=== PATIENT | female | born 1985 | race Hispanic/Latino ===

== ENCOUNTER 2017-12-27 20:48 | Observation (INO) | payer BC ==
[~2017-12-27] VITALS: Ht 157.5 cm; Wt 83.5 kg
[2017-12-27 00:35] VITALS: BP 100/59
--- OUTSIDE RECORDS SUMMARY | 2017-12-27 20:51 | XMS REPORT | Summary of Care ---
Author Author SAM GRIFFIN N.P. Unknown Address Unknown Phone Unavailable Care Team Providers Care Egyptologist Name Role Phone MAINE LEE N.P. Unavailable Unavailable Unavailable Unavailable Functional Status Name Dates Details Functional status health issues are not documented Status: Name Dates Details Cognitive status health issues are not documented Status: Problems Name Dates Details Fatigue, unspecified type (780.79, R53.83) Status: Active Pelvic pain in female (625.9, R10.2) Status: Active Gastric pain (536.8, R10.9) Status: Active Cervical cancer (180.9, C53.9) Status: Active Elevated LFTs (790.6, R94.5) Status: Active Vaginal itching (698.1, N89.8) Status: Active Vulvovaginal candidiasis (112.1, B37.3) Status: Active Breast pain in female (611.71, N64.4) Status: Active Galactorrhea in female (611.6, N64.3) Status: Active Swollen breast (611.72, N63.0) Status: Active Bacterial vaginosis (616.10, N76.0) Status: Active Abdominal pain (789.00, R10.9) Status: Active Breast cancer screening (V76.10, Z12.31) Status: Active Medications Name Dates Details MetroNIDAZOLE 500 MG Oral Tablet TAKE TABLET TWICE DAILY Quantity: 14 ROSA N.P., MAINE * Start : 19-Jun-2017 Active Allergies and Adverse Reactions Name Dates Details No Known Drug Allergies (Allergy) Status: Active Procedures Procedure Dates Details History of Section Completed History of Cholecystectomy Completed History of Dilation And Curettage Completed Immunization Name Dates Details Immunizations not documented Family History Name Dates Details Family history of myocardial infarction (V17.3, Z82.49) Status: Active Name Dates Details Family history of diabetes mellitus (V18.0, Z83.3) Status: Active Family history of essential hypertension (V17.49, Z82.49) Status: Active Name Dates Details Family history of arthritis (V17.7, Z82.61) Status: Active Name Dates Details Family history of myocardial infarction (V17.3, Z82.49) Status: Active Social History Name Dates Details - Status: Name Dates Details Never smoker Vital Signs Date Test Result Details No Known Vitals to report Results Date Description Value Details Results not documented Plan of Care Name Dates Details Planned Observations Planned Goals not documented Planned Encounters Appointment; ZACHARY VILLARREAL M.D. On: 07-Jan-2018 10:20 Instructions Name Dates Details Instructions not documented Encounters Appointment; ZACHARY VILLARREAL M.D. Encounter Diagnosis: Problem not documented On: 06-Dec-2015 8:15 Appointment; ZACHARY VILLARREAL M.D. Encounter Diagnosis: Problem not documented On: 06-Mar-2016 9:15 Appointment; ZACHARY VILLARREAL M.D. Encounter Diagnosis: Problem not documented On: 05-Jun-2016 8:15 Appointment; ZACHARY VILLARREAL M.D. Encounter Diagnosis: Problem not documented On: 12-Jun-2016 14:15 Appointment; ZACHARY VILLARREAL M.D. Encounter Diagnosis: Problem not documented On: 11-Sep-2016 9:40 Appointment; ZACHARY VILLARREAL M.D. Encounter Diagnosis: Problem not documented On: 11-Dec-2016 10:20 Appointment; ZACHARY VILLARREAL M.D. Encounter Diagnosis: Problem not documented On: 11-Jun-2017 10:20 Appointment; TAB MCLAUGHLIN M.D. Encounter Diagnosis: Problem not documented On: 02-Jul-2017 14:30
[2017-12-27] MEDS ORDERED: ALBUTEROL SULF 0.083% NEB SOLN 3 ML NEB NEB STA (20:52)
[2017-12-27] MEDS ORDERED: ACETAMINOPHEN 325 MG TAB PO ONE (21:00)
[2017-12-27] MEDS ORDERED: IPRATROPIUM BROMIDE 0.02% 2.5 ML NEB NEB ONE (21:00)
[2017-12-27] MEDS ORDERED: SODIUM CHLORIDE 0.9% 1000ML 1,000 ML IV SCH (21:00)
[2017-12-27 21:13] LABS: BASOPHILS # (AUTO) 0.1 (0.0-0.1); BASOPHILS % 0.5 % (0.0-1.0); EOSINOPHILS # (AUTO) 2.5 (0.0-0.4); HEMATOCRIT 41.4 % (34.2-44.1); HEMOGLOBIN 13.7 g/dL (12.0-16.0); LYMPHOCYTES # (AUTO) 2.9 (1.0-3.2); LYMPHOCYTES % 19.5 % (18.0-39.1); MEAN CORPUSCULAR HEMOGLOBIN 29.1 pg (28-32); MEAN CORPUSCULAR HGB CONC 33.1 g/dL (31-35); MEAN CORPUSCULAR VOLUME 87.9 fL (81-99); MONOCYTES # (AUTO) 0.8 (0.2-0.8); MONOCYTES % 5.5 % (4.4-11.3); NEUTROPHILS # (AUTO) 8.5 (2.1-6.9); NEUTROPHILS % 57.2 % (38.7-80.0); PLATELET COUNT 312 x10e3/uL (140-360); RED BLOOD COUNT 4.71 x10e6/uL (3.6-5.1); RED CELL DISTRIBUTION WIDTH 13.4 % (11.7-14.4)
[2017-12-27 21:21] LABS: CLARITY,URINE CLEAR (CLEAR); COLOR,URINE YELLOW (YELLOW)
[2017-12-27 21:22] LABS: BILIRUBIN,URINE NEGATIVE (NEGATIVE); KETONES,URINE NEGATIVE (NEGATIVE); LEUKOCYTE ESTERASE ,URINE NEGATIVE (NEGATIVE); NITRITE,URINE NEGATIVE (NEGATIVE); PROTEIN,URINE DIPSTICK NEGATIVE (NEGATIVE); URINE UROBILINOGEN 0.2 mg/dL (0.2 - 1)
[2017-12-27 21:23] LABS: PREGNANCY TEST, URINE NEGATIVE (NEGATIVE)
[2017-12-27 21:30] LABS: ALANINE AMINOTRANSFERASE 39 IU/L (0-55); ALBUMIN 3.9 g/dL (3.5-5.0); ALBUMIN/GLOBULIN RATIO 1.3 (0.8-2.0); ALKALINE PHOSPHATASE 68 IU/L (40-150); ANION GAP 14.7 mmol/L (8-16); BLOOD UREA NITROGEN 10 mg/dL (7-26); BUN/CREATININE RATIO 18 (6-25); CALCIUM 8.2 mg/dL (8.4-10.2); CARBON DIOXIDE 23 mmol/L (22-29); CHLORIDE 104 mmol/L (98-107); CREATININE, SERUM 0.56 mg/dL (0.57-1.11); EST GLOMERULAR FILTRATION RATE > 60 ML/MIN (60-); GLUCOSE 92 mg/dL (74-118); POTASSIUM 3.7 mmol/L (3.5-5.1); SODIUM 138 mmol/L (136-145)
[2017-12-27 21:37] LABS: BACTERIA,URINE MODERATE /HPF; EPITHELIAL CELLS,URINE MANY /LPF; RBC,URINE 0-5 /HPF (0-5); WBC,URINE (MAN) 0-5 /HPF (0-5)
[2017-12-27 21:39] LABS: INFLUENZAE A&B ANTIGEN (RAPID) NEGATIVE (NEGATIVE); STREPTOCOCCUS GRP A ANTIGEN POSITIVE (NEGATIVE)
--- NOTE | 2017-12-27 21:40 | Diagnostic Imaging Report ---
EXAM: CHEST SINGLE (PORTABLE), AP 1 view INDICATION: Shortness of breath COMPARISON: None FINDINGS: LINES/TUBES: None LUNGS: No consolidations or edema. PLEURA: No effusions or pneumothorax. HEART AND MEDIASTINUM: Normal size and contour. BONES AND SOFT TISSUES: No acute findings. IMPRESSION: No acute thoracic abnormality. Signed by: Dr. Ann-Marie Cassidy M.D. on 12/27/2017 9:37 PM
[2017-12-27] MEDS ORDERED: PENICILLIN G BENZATHINE LA 1.2 MU TBX IM STA (21:41)
[2017-12-27] MEDS ORDERED: METHYLPREDNISOLONE SOD SUCC 125 MG/2ML VIAL IV ONE (22:00)
[2017-12-27] MEDS ORDERED: SODIUM CHLORIDE 0.9% 1000ML 1,000 ML IV ONE (22:00)
[2017-12-27 22:19] LABS: EOSINOPHILS % (MANUAL) 18 % (0-7); LYMPHOCYTES % (MANUAL) 21 % (19-48); MONOCYTES % (MANUAL) 2 % (3.4-9.0); NEUTROPHILS % (MANUAL) 59 % (40-74)
[2017-12-27 22:21] LABS: PLATELET ESTIMATE ADEQUATE; PLATELET MORPHOLOGY COMMENT NORMAL; RBC MORPHOLOGY COMMENT NORMAL
--- OUTSIDE RECORDS SUMMARY | 2017-12-27 22:43 | XMS REPORT ---
Author Author [facility] Address Unknown Phone Unavailable Care Team Providers Care Press Box Custodian Name Role Phone Sylvia BARAJAS Unavailable Unavailable Problems This patient has no known problems. Allergies, Adverse Reactions, Alerts This patient has no known allergies or adverse reactions. Medications This patient has no known medications. Results Test Description Test Time Test Comments Text Results Atomic Results Result Comments CHEST SINGLE (PORTABLE) 2017-12-27 21:37:00 [facility] [address] [place] [address] Patient Name: LEXIE MORELAND MR #: [id number] : 1985 Age/Sex: 32/F Req #: [id number] Adm Physician: Ordered by: JAIME BARAJAS MD Report #: [id number] Location: ER Room/Bed: Procedure: [id number] DX/CHEST SINGLE (PORTABLE) Exam Date: 12/27/17 Exam Time: 2124 REPORT STATUS: Signed EXAM: CHEST SINGLE (PORTABLE), AP 1 view INDICATION: Shortness of breath COMPARISON: None FINDINGS: LINES/TUBES: None LUNGS: No consolidations or edema. PLEURA: No effusions or pneumothorax. HEART AND MEDIASTINUM: Normal size and contour. BONES AND SOFT TISSUES: No acute findings. IMPRESSION: No acute thoracic abnormality. Signed by: Dr. David Roberson M.D. on 12/27/2017 9:37 PM Dictated By: DAVID ROBERSON MD 36 Transcribed By: BEENA on 12/27/172136 COPY TO: JAIME BARAJAS MD
[2017-12-27] MEDS ORDERED: ONDANSETRON HCL INJ 2 MG/ML VIAL IV PRN (22:45)
[2017-12-27] MEDS: AZITHROMYCIN 500MG/NS 250 ML 250 ML IV SCH (23:00)
[2017-12-27] MEDS: SODIUM CHLORIDE 0.9% 1000ML 1,000 ML IV SCH (23:00)
[2017-12-27] MEDS: METHYLPREDNISOLONE SOD SUCC 40 MG/ML VIAL IV SCH (23:25)
[2017-12-28] MEDS: ACETAMINOPHEN 325 MG TAB PO PRN ×3 (00:22→19:35)
[2017-12-28] MEDS: ALBUTEROL/IPRATROPIUM 3 ML NEB NEB SCH ×6 (02:40→23:15)
[2017-12-28 05:40] LABS: BASOPHILS % 0.1 % (0.0-1.0); EOSINOPHILS % 0.1 % (0.0-6.0); HEMATOCRIT 36.9 % (34.2-44.1); HEMOGLOBIN 12.2 g/dL (12.0-16.0); LYMPHOCYTES % 7.4 % (18.0-39.1); MEAN CORPUSCULAR HEMOGLOBIN 28.8 pg (28-32); MEAN CORPUSCULAR HGB CONC 33.1 g/dL (31-35); MEAN CORPUSCULAR VOLUME 87.2 fL (81-99); MONOCYTES # (AUTO) 0.1 (0.2-0.8); MONOCYTES % 0.7 % (4.4-11.3); NEUTROPHILS # (AUTO) 12.2 (2.1-6.9); NEUTROPHILS % 91.2 % (38.7-80.0); PLATELET COUNT 281 x10e3/uL (140-360); RED BLOOD COUNT 4.23 x10e6/uL (3.6-5.1); RED CELL DISTRIBUTION WIDTH 13.5 % (11.7-14.4)
[2017-12-28 06:02] LABS: ALANINE AMINOTRANSFERASE 41 IU/L (0-55); ALBUMIN 3.2 g/dL (3.5-5.0); ALBUMIN/GLOBULIN RATIO 0.9 (0.8-2.0); ALKALINE PHOSPHATASE 54 IU/L (40-150); ANION GAP 12.8 mmol/L (8-16); BLOOD UREA NITROGEN 6 mg/dL (7-26); BUN/CREATININE RATIO 11 (6-25); CALCIUM 7.6 mg/dL (8.4-10.2); CARBON DIOXIDE 20 mmol/L (22-29); CHLORIDE 110 mmol/L (98-107); CREATININE, SERUM 0.53 mg/dL (0.57-1.11); EST GLOMERULAR FILTRATION RATE > 60 ML/MIN (60-); GLUCOSE 142 mg/dL (74-118); POTASSIUM 3.8 mmol/L (3.5-5.1); SODIUM 139 mmol/L (136-145)
[2017-12-28] MEDS: METHYLPREDNISOLONE SOD SUCC 40 MG/ML VIAL IV SCH ×3 (06:29→21:00)
[2017-12-28] MEDS: SODIUM CHLORIDE 0.9% 1000ML 1,000 ML IV SCH ×3 (06:31→22:31)
[2017-12-28 08:00] VITALS: BP 102/56
--- NOTE | 2017-12-28 10:26 | History and Physical ---
REFERRING PHYSICIAN: Dr. Woo Seay. HISTORY OF PRESENT ILLNESS: The patient is a 32-year-old woman. She had a history of early cervical cancer that required hysterectomy 3 years ago. She received no chemotherapy or radiation. She also reports a history of acid reflux and heartburn. She occasionally takes omeprazole. The patient now complains of increased fatigue and shortness of breath with exertion. She notes some pain in the lower sternal area and epigastric area that is worse with palpation. She also notes coughing. She denies any wheezing. She does have small amounts of yellow phlegm production. PAST SURGICAL HISTORY 1. Status post hysterectomy. 2. Status post cholecystectomy. SOCIAL HISTORY: The patient has never been a smoker. She is not a drinker. She works at [employer], a local grocery store. She is originally from [facility], but has lived here for 14 years. She has no recent travel. FAMILY HISTORY: Noncontributory. REVIEW OF SYSTEMS: The patient does not report any fever. There is no headache. She has some sore throat. She denies any neck pain. She notes some anterior chest pain that is worse with palpitation. She reports some coughing and dyspnea. She does not have any nausea or vomiting. She has no leg edema. She has no skin rashes. PHYSICAL EXAMINATION VITAL SIGNS: The patient is afebrile, although her temperature was 100 last night. Her heart rate is 104. Her blood pressure is 114/60 and saturation is 98% on 2 liters. HEENT: Shows no facial swelling or erythema. Nasal mucosa is normal. The oropharynx is normal. LYMPHATIC: Shows no submandibular, cervical, or supraclavicular adenopathy. CARDIOVASCULAR: Reveals a regular rate and rhythm with normal S1 and S2. RESPIRATORY: Auscultation of the lungs reveal clear breath sounds bilaterally. There is no wheezing. ABDOMEN: Soft. There is some rebound in the epigastric area. EXTREMITIES: There is no leg swelling. NEUROLOGIC: Exam shows no focal abnormalities. MICROBIOLOGICAL DATA: A rapid strep screen is positive. Influenza is negative. LABORATORY DATA: The carbon dioxide is 20 and the other electrolytes are within normal limits. The BUN and creatinine ratio is normal. The liver tests are normal. The white blood cell count is 13.4 and the platelet count is 281. IMPRESSION 1. Chest pain and dyspnea. 2. Strep pharyngitis. 3. Gastroesophageal reflux. 4. Asthma with acute exacerbation. PLAN Patient will receive Solu-Medrol at 30 mg IV q.[address] scan of the chest to rule out pulmonary embolism and pneumonia. Echocardiogram to rule out pericarditis. Proton pump inhibitors. Job#: [id number] NAN
[2017-12-28 11:19] VITALS: BP 112/61
[2017-12-28] MEDS: PANTOPRAZOLE 40 MG 10ML VIAL IV SCH (11:49)
--- NOTE | 2017-12-28 11:54 | Diagnostic Imaging Report ---
CT chest pulmonary embolism protocol CPT code: 61346 INDICATION: Chest pain and shortness of breath for 2 days TECHNIQUE: Thin collimation axial images obtained through the level of the pulmonary arteries with additional imaging through the chest following the uneventful administration of 100 cc of low osmolar, nonionic intravenous contrast. Images reconstructed into coronal and sagittal MIPs for complete evaluation of the tortuous and overlapping pulmonary vascular structures and to reduce patient radiation dose. Dose reduction techniques used: Automated exposure control, adjustment of the mAs and/or kVp according to patient size, standardized low-dose protocol, and/or iterative reconstruction technique. RADIATION DOSE: Total DLP: 520.6 mGy*cm Estimated effective dose: (DLP x 0.015 x size factor) mSv CTDIvol has been reviewed. It is below the limits set by the Radiation Protocol Committee (RPC). COMPARISON: Chest x-ray 12/27/2017. FINDINGS: Pulmonary artery: No filling defects are appreciated within the main, left, right, lobar or visualized segmental pulmonary arteries to suggest embolism. Aorta: The thoracic aorta is not aneurysmal. No evidence for dissection. Lymph nodes: No enlarged axillary or supraclavicular lymph nodes. Prominent right inferior hilar lymph node measures 10 mm and is nonspecific. No enlarged subcarinal lymph nodes Thyroid: Normal in size without mass in the visualized parenchyma. Mediastinum: No mediastinal fluid or air. Lungs: Right Lung: No soft tissue mass. Calcified granuloma in the right middle lobe measures 5 mm. Small foci of subsegmental atelectasis or infiltrate in the posterior costophrenic angle Left Lung: No soft tissue mass. Small foci of subsegmental atelectasis in the posterior costophrenic angle. Airways: Mild bronchial wall thickening without bronchiectasis. No filling defects. Pleura: Trace right pleural effusion in the posterior costophrenic angle. No left pleural effusion. No pleural based mass. Abdomen: The gallbladder is absent. No soft tissue mass or lymphadenopathy in the visualized portion of the upper abdomen. Bones: Unremarkable for age. IMPRESSION: 1. No evidence of pulmonary embolus or aortic dissection. 2. Diffuse bronchial wall thickening is suggestive of bronchitis. Small foci of subsegmental atelectasis in the posterior costophrenic angles. Please correlate for signs/symptoms of infection. 3. Trace right pleural effusion. Signed by: Dr. Alfonso Frost MD on 12/28/2017 11:50 AM
[2017-12-28] MEDS ORDERED: SODIUM CHLORIDE 0.9% 50ML 50 ML ONE (12:01)
[2017-12-28] MEDS ORDERED: IOPAMIDOL 370 MG/ML 200 ML INFUS..BTL INJ ONE (12:01)
[2017-12-28 15:34] VITALS: BP 109/61
[2017-12-28] MEDS: FLUTICASONE PROPIONATE 220MCG INH INH SCH (19:30)
[2017-12-28 20:00] VITALS: BP 115/72
[2017-12-28 21:00] VITALS: BP 115/72
[2017-12-28] MEDS: MONTELUKAST SODIUM 10 MG TAB PO SCH (21:00)
[2017-12-28] MEDS: AZITHROMYCIN 500MG/NS 250 ML 250 ML IV SCH (22:07)
[2017-12-29] VITALS (7 sets, daily range): BP systolic 108–119; BP diastolic 57–72
[2017-12-29] MEDS: ALBUTEROL/IPRATROPIUM 3 ML NEB NEB SCH ×6 (03:45→23:10)
[2017-12-29] MEDS: ACETAMINOPHEN 325 MG TAB PO PRN ×2 (04:11→08:40)
[2017-12-29] MEDS: FLUTICASONE PROPIONATE 220MCG INH INH SCH ×2 (06:41→19:25)
[2017-12-29] MEDS ORDERED: GUAIFENESIN/CODEINE 10 ML CUP PO PRN (08:15)
[2017-12-29] MEDS ORDERED: FUROSEMIDE 20 MG TAB PO ONE (08:15)
[2017-12-29] MEDS ORDERED: CEFTRIAXONE SOD 1 GM VIAL IV SCH (08:15)
[2017-12-29] MEDS: METHYLPREDNISOLONE SOD SUCC 40 MG/ML VIAL IV SCH ×2 (08:49→20:30)
[2017-12-29] MEDS: PANTOPRAZOLE 40 MG 10ML VIAL IV SCH (08:49)
--- NOTE | 2017-12-29 09:01 | Progress Note ---
DATE: December 29, 2017 PULMONARY PROGRESS NOTE SUBJECTIVE: The patient still has some cough and congestion. She reports anterior sternal pain with coughing. She has some wheezing and dyspnea. PHYSICAL EXAMINATION VITAL SIGNS: The patient is afebrile. The blood pressure is 110/57. The pulse is 93. Saturation is 96%. HEENT: Shows no facial swelling or erythema. The nasal mucosa is normal. The oropharynx is normal. LYMPHATIC: Shows no submandibular, cervical or supraclavicular adenopathy. NECK: Shows no JVD or thyromegaly. CARDIAC: Reveals a regular rate and rhythm with a normal S1 and S2. There are no murmurs or rubs. LUNGS: Auscultation of the lungs reveals rhonchus sounds bilaterally. There is wheezing. ABDOMEN: Soft and nontender. There is no rebound or guarding. EXTREMITIES: Shows no leg edema or calf tenderness. RADIOGRAPHIC DATA: CT scan of the chest shows no evidence of pulmonary emboli. There is some diffuse bronchial inflammation suggestive of bronchitis or asthma. There is no pneumothorax. There are no infiltrates. Echocardiogram shows no evidence of pericarditis. The ejection fraction is normal. There is no valvular abnormalities. IMPRESSION 1. Asthma with acute exacerbation. 2. Streptococcus pharyngitis. 3. Gastroesophageal reflux. 4. Chest pain secondary to asthma. PLAN 1. Continue Solu-Medrol twice daily along with bronchodilators. 2. Begin Flovent twice a day along with Singulair once daily. 3. Continue proton pump inhibitors and H2 blockers. 4. Stop IV fluids. 5. Continue IV antibiotics. Job#: [id number] NORBERTO
[2017-12-29] MEDS ORDERED: CEFTRIAXONE SOD 1 GM VIAL ONE (09:49)
[2017-12-29] MEDS: CEFTRIAXONE SOD 1 GM VIAL IV SCH ×2 (09:49→20:30)
[2017-12-29] MEDS: FAMOTIDINE 20 MG TAB PO SCH (17:50)
[2017-12-29] MEDS ORDERED: MAGNESIUM HYDROXIDE 30 ML UDC PO ONE (18:30)
[2017-12-29] MEDS: MONTELUKAST SODIUM 10 MG TAB PO SCH (20:30)
[2017-12-29] MEDS: AZITHROMYCIN 500MG/NS 250 ML 250 ML IV SCH (22:05)
[2017-12-30] VITALS: BP 118/77
[2017-12-30] MEDS: ALBUTEROL/IPRATROPIUM 3 ML NEB NEB SCH ×3 (03:05→10:56)
[2017-12-30 04:00] VITALS: BP 101/55
[2017-12-30 05:18] LABS: BASOPHILS % 0.1 % (0.0-1.0); HEMATOCRIT 37.8 % (34.2-44.1); HEMOGLOBIN 12.4 g/dL (12.0-16.0); LYMPHOCYTES # (AUTO) 2.4 (1.0-3.2); LYMPHOCYTES % 16.8 % (18.0-39.1); MEAN CORPUSCULAR HEMOGLOBIN 28.8 pg (28-32); MEAN CORPUSCULAR HGB CONC 32.8 g/dL (31-35); MEAN CORPUSCULAR VOLUME 87.7 fL (81-99); MONOCYTES # (AUTO) 0.5 (0.2-0.8); MONOCYTES % 3.3 % (4.4-11.3); NEUTROPHILS # (AUTO) 11.1 (2.1-6.9); PLATELET COUNT 326 x10e3/uL (140-360); RED BLOOD COUNT 4.31 x10e6/uL (3.6-5.1); RED CELL DISTRIBUTION WIDTH 14.2 % (11.7-14.4)
[2017-12-30 05:48] LABS: ALANINE AMINOTRANSFERASE 30 IU/L (0-55); ALBUMIN 3.4 g/dL (3.5-5.0); ALKALINE PHOSPHATASE 54 IU/L (40-150); ANION GAP 10.2 mmol/L (8-16); BLOOD UREA NITROGEN 10 mg/dL (7-26); BUN/CREATININE RATIO 17 (6-25); CARBON DIOXIDE 24 mmol/L (22-29); CHLORIDE 105 mmol/L (98-107); CREATININE, SERUM 0.59 mg/dL (0.57-1.11); EST GLOMERULAR FILTRATION RATE > 60 ML/MIN (60-); GLUCOSE 117 mg/dL (74-118); POTASSIUM 4.2 mmol/L (3.5-5.1); SODIUM 135 mmol/L (136-145)
[2017-12-30 05:50] LABS: CALCIUM 8.8 mg/dL (8.4-10.2)
[2017-12-30] MEDS: FLUTICASONE PROPIONATE 220MCG INH INH SCH (07:00)
[2017-12-30 07:05] VITALS: BP 114/70
[2017-12-30 08:10] VITALS: BP 114/70
--- NOTE | 2017-12-30 08:39 | Discharge Summary ---
DISCHARGE DIAGNOSES 1. Asthma with acute exacerbation. 2. Gastroesophageal reflux. 3. Streptococcus pharyngitis. 4. Atypical chest pain. DIAGNOSTIC STUDIES 1. Computerized tomography scan of the chest with the pulmonary angiogram protocol showed no evidence of pulmonary emboli or aortic dissection. Patient did have some bronchial wall thickening and subsegmental atelectasis suggestive of bronchitis. 2. Echocardiogram showed a normal ejection fraction with no valvular abnormalities. There was no evidence of pericardial effusion. DISCHARGE MEDICATIONS 1. Flovent 220 mcg 1 puff twice daily. 2. Albuterol HFA inhaler 2 puffs q.4 h. p.r.n. as needed. 3. Prilosec 1 p.o. q.a.m. before eating. 4. Z-Praveen. HISTORY OF PRESENT ILLNESS: The patient is a 32-year-old woman. She came in with coughing and shortness of breath for 2 days. She noted some wheezing and some fatigue. She also complained of some anterior chest pain, as well as some epigastric pain. HOSPITAL COURSE: The patient was admitted. She was started on IV Solu-Medrol along with bronchodilators and noted improvement. She also had a rapid Strep in the emergency department that was positive. She was treated with antibiotics for this. On further evaluation, she reported epigastric discomfort associated with some acid reflux. She had been taking Prilosec, but had recently stopped it. Her proton pump inhibitors were restarted. She also had a CT scan that showed no evidence of pulmonary emboli. An echocardiogram that showed no evidence of pericarditis. DISPOSITION: The patient felt much better at the time of discharge. She will follow up with Dr. Hector Perea in 3 weeks. HECTOR PEREA MD Job#: [id number] [place]
[2017-12-30] MEDS: CEFTRIAXONE SOD 1 GM VIAL IV SCH (08:43)
[2017-12-30] MEDS: PANTOPRAZOLE 40 MG 10ML VIAL IV SCH (08:43)
[2017-12-30] MEDS: FAMOTIDINE 20 MG TAB PO SCH (08:43)
[2017-12-30 11:58] VITALS: BP 110/58
[2018-01-01 23:58] LABS: ALPHA-1-ANTITRYPSIN 162 mg/dL (90-200)
== END 2017-12-30 11:47 | disposition home or self-care (01) ==
LOC: ER 20:48 → ERHOLD 22:31 → IMCU 12-28 02:43 → MED/SURG3 12-28 09:57
PROVIDERS: ADMIT Internal Medicine Critical Care Medicine; ATTEND Internal Medicine Critical Care Medicine
DX: J45.901 Unspecified asthma with (acute) exacerbation (principal); R07.89 Other chest pain; J02.0 Streptococcal pharyngitis; Z85.41 Personal history of malignant neoplasm of cervix uteri; K21.9 Gastro-esophageal reflux disease without esophagitis
CPT/HCPCS: 36415 ×3; 71045; 71260; 80053 ×3; 81001; 81025; 82103; 83518; 83605; 85025 ×3; 86001; 86003; 87040; 87400; 93306; 94640 ×8; 96376; 99284; G0378 ×4; J0456 ×3; J0561; J0696 ×2; J2405; J2920 ×2; J2930; J7030 ×2; Q9967; 96374

== ENCOUNTER 2021-07-04 14:41 | Emergency (ER) | payer BC ==
[~2021-07-04] VITALS: Ht 157.5 cm; Wt 83.5 kg
[2021-07-04] MEDS ORDERED: PREDNISONE50 MG PO (17:47)
[2021-07-04] MEDS ORDERED: ACYCLOVIR800 MG PO (17:47)
== END 2021-07-04 17:34 | disposition home or self-care (01) ==
LOC: ER 15:00
DX: G51.0 Bell's palsy (principal); Z85.41 Personal history of malignant neoplasm of cervix uteri
CPT/HCPCS: 70450; 99283